=== PATIENT | male | born 1985 | race Hispanic/Latino ===

== ENCOUNTER 2017-02-02 13:14 | Emergency (ER) | payer BC, OTHER ==
[2017-02-02] MEDS ORDERED: DEXAMETHASONE SOD PHOSPHATE 10MG/ML 1ML VIAL ONE (13:41)
[2017-02-02 13:46] LABS: RAPID GROUP A STREP NEGATIVE (NEGATIVE)
== END 2017-02-02 15:16 | disposition home or self-care (01) ==
LOC: EDH 13:14
DX: J02.8 Acute pharyngitis due to other specified organisms (principal); B97.89 Other viral agents as the cause of diseases classified elsewhere; R05 Cough
CPT/HCPCS: 87804 ×2; 87880; 96372; 99284; J1100

== ENCOUNTER 2018-11-30 18:06 | Emergency (ER) | payer SELFPAY | END 2018-11-30 19:05 | disposition home or self-care (01) | LOC: EDH 18:06 | DX: J02.9 Acute pharyngitis, unspecified (principal) | CPT/HCPCS: 99281 ==